=== PATIENT | male | born 1960 | race Caucasian/White ===

== ENCOUNTER 2021-10-17 16:25 | Outpatient (REF) | payer OTHER, SELFPAY ==
--- NOTE | ~2021-10-17 | XR_ITS ---
EXAMINATION: XR RIBS, RIGHT CLINICAL INFORMATION: Contusion.. COMPARISON: None TECHNIQUE: Frontal view of chest. 4 oblique views of the right ribs. The area of pain is marked with an external skin BB which lies at the lower right ribs. FINDINGS: Anterior right 10th rib is abnormal. There is radiolucency of the bone over length of about 2 cm and the cortex is indistinct inferiorly. Findings suspicious for rib destruction and possible fracture. This can be further assessed with CT. There is no right-sided pneumothorax. Small linear opacity the right costophrenic angle probably due to atelectasis or small pleural effusion. XR/XR ribs RT min 3V w [id number] IMPRESSION: Abnormal anterior right 10th rib. Suspect small focal osteolytic lesion of the rib and possible rib fracture. CT recommended for further assessment
== END 2021-10-17 16:26 | disposition home or self-care (01) ==
LOC: HO.HMGCX 16:25
PROVIDERS: Visit Provider Internal Medicine
DX: S20.219A Contusion of unspecified front wall of thorax, initial encounter (principal)
CPT/HCPCS: 71101

== ENCOUNTER → 2025-06-30 07:55 | Outpatient (BNVA) | payer SELFPAY | PROVIDERS: PCP Internal Medicine; Visit Provider Physician Assistant Medical | DX: Z02.79 Encounter for issue of other medical certificate (principal) ==